=== PATIENT | female | born 1970 | race Caucasian/White ===

== ENCOUNTER 2022-09-30 08:00 | Outpatient (NON) | payer OTHER, SELFPAY | END 2022-09-30 08:01 | disposition home or self-care (01) | LOC: ANHLAB 10-01 07:23 | PROVIDERS: PCP Family Medicine; Visit Provider Obstetrics & Gynecology | DX: N84.0 Polyp of corpus uteri (principal); N95.0 Postmenopausal bleeding | CPT/HCPCS: 88305 ==

== ENCOUNTER 2022-09-30 09:06 | Day surgery (SDC) | payer OTHER, SELFPAY ==
[2022-09-21 15:00] VITALS: BMI 37.6
[2022-09-22 09:11] VITALS: BMI 37.0
[2022-09-30] VITALS (7 sets, daily range): BP systolic 76–133; BP diastolic 34–93; PULSE 30–77; RESP 12–20; TEMP 36.8; O2SAT 99–100
--- NOTE | 2022-09-30 00:08 | PM.IMHP ---
H&P: HPI History of Present Illness Date/Time: 09/30/22 00:08 Chief Complaint: Postmenopausal bleeding. Narrative: 51 y/o who had not had any vaginal bleeding for a couple of years. She then had an episode of vaginal bleeding in early August 2022, lasting for 4 days, followed by another episode of brick wheeler spotting. She had a hysteroscopy with D&C in 2012 which found a benign endometrial polyp. Ultrasound shows an anteverted uterus with a small posterior myoma. The endometrial complex is heterogeneous, measuring 12 mm in thickness. Adnexa are not clearly seen. I have offered hysteroscopy wiht D&C and possible endometrial polypectomy. Review of Systems Review of Systems: All systems reviewed & are unremarkable except as noted in HPI and below PMFSH Past Medical History Medical History BMI greater than 30 Elevated glucose Family history of diabetes mellitus (DM) Screening for lipid disorders Family History Family History Other Diabetes mellitus Hypertension Social History Social History Smoking status: Never smoker Alcohol intake: current Meds Home Medications and Allergies Home Medications Medication Instructions Recorded Confirmed Type No Home Medications 07/15/21 09/22/22 History Allergies Allergy/AdvReac Type Severity Reaction Status Date / Time No Known Allergies Allergy Verified 09/22/22 09:08 Exam Const: Orientation/consciousness: patient oriented x3 Other: Well-developed, well-nourished female in no acute distress. Neck: Thyroid: thyroid normal Lymphatic: no lymphadenopathy noted (in neck, axilla or inguinal nodes) Resp: Effort & Inspection: normal respiratory effort Auscultation: clear to auscultation bilaterally Cardio: Rate: regular rate Rhythm: regular rhythm Heart sounds: S1 normal heart sound present and S2 normal heart sound present GI: Other: ABD: Soft, nontender, nondistended. No guarding or rebound tenderness. No hepatosplenomegaly. : General: Yes no CVA tenderness Other: External genitalia: normal female hair distribution, without lesion. Urethral meatus: no lesion, non prolapsed. Bladder: no mass, nontender Vagina: well-estrogenized, without lesion or discharge. No cystocele or rectocele. Cervix: no lesion or discharge. Uterus: small, anteverted, freely mobile, nontender Adnexa: no mass or tenderness. Anus/perineum: no lesions, nontender Back/Spine/Pelvis: Back: no CVA tenderness Skin: General skin exam: normal color and no rashes or lesions noted Neuro: General: patient oriented x3 Extrem: Other: Extremities: nontender with no edema Psych: Mental Status: mental status grossly normal Affect: normal affect Assessment and Plan Assessment and plan (1) Postmenopausal bleeding: Code(s): N95.0 - Postmenopausal bleeding Status: Acute Assessment and Plan: I offered hysteroscopy with dilation and sharp curettage, with possible endometrial polypectomy. She understands risks of surgery to include risks of anesthesia, risks of pain, infection, bleeding, blood products, thromboembolic phenomena and damage to adjacent structures such as bowel, bladder, ureters, blood vessels and nerves. She understands all these risks and elects to proceed with surgery. (2) Abnormal pelvic ultrasound: Code(s): R93.89 - Abnormal findings on diagnostic imaging of other specified body structures Status: Acute
[2022-09-30] MEDS: LACTATED RINGERS 1,000 ML 30 ML IV CONT ×2 (09:45→12:35)
[2022-09-30] MEDS: ACETAMINOPHEN 500 MG TABLET 1000 MG PO (09:45)
--- NOTE | 2022-09-30 11:04 | WPDHPUPDATE1 ---
History and Physical Update Update Date/Time: 09/30/22 11:04 History and Physical has been reviewed, including an updated exam of the patient. There are NO changes in the patient's condition. Risks, benefits, and alternatives have been discussed and questions answered. Patient agrees to proceed with procedure.
--- NOTE | 2022-09-30 11:13 | P.PNAN_ITS ---
Anes - Initial Pre Proc Eval Procedure: Operation Date: 09/30/22 11:00 Proposed Procedures p Hysteroscopy, Dilation and Curettage with Polypectomy - Benjamin Cevallos MD Date/Time: 09/30/22 11:13 Surgeon: Benjamin Cevallos MD Pre Op Diagnosis: Cervial Polyp, Post menopausal bleeding Patient Data Age: 51 Gender: F Height: 1.6 m Weight: 98.4 kg Last Vital Signs Temp 36.8 C 09/30/22 09:45 Pulse 77 09/30/22 09:45 Resp 16 09/30/22 09:45 BP 133/80 09/30/22 09:45 Pulse Ox 99 09/30/22 09:45 O2 Del Method Room Air 09/30/22 09:45 Allergies Allergy/AdvReac Type Severity Reaction Status Date / Time No Known Allergies Allergy Verified 09/30/22 09:55 Home Medications Medication Instructions Recorded Confirmed Type hydrocodone 5 mg-acetaminophen 325 1 - 2 tablet PO Q6H PRN pain #20 09/30/22 Rx mg tablet tabs Patient hx anesthesia problems: none Family hx anesthesia problems: none Results Review: All pre-operative results and documents have been reviewed as part of the pre- operative evaluation. [facility]LY [facility] Past Medical History Medical History BMI greater than 30 Elevated glucose Family history of diabetes mellitus (DM) Screening for lipid disorders Family History Family History Other Diabetes mellitus Hypertension Social History Social History Smoking status: Never smoker Alcohol intake: current Anes - Eval Final PreProcedure Day of Procedure 09/30/22 11:13 Patient weight: obese Heart: regular rate and rhythm Lungs: clear to auscultation Airway: Mallampati scale class II Neurological: alert and oriented Last oral intake: >/= 8 hours ASA classification: II Emergent: no Anesthetic plan: proceed Anesthesia type and monitoring: general GIVS and standard monitoring Results Review: All pre-operative results and documents have been reviewed as part of the pre- operative evaluation. Informed Consent: The patient's anesthetic plan and its attendant risks and benefits were discussed with the patient/family/POA. Questions were solicited and answers provided to the satisfaction of the patient/family/POA.
--- NOTE | 2022-09-30 11:43 | W.PM.PROC2 ---
Procedure Note - Detailed Date of Procedure 09/30/22 Pre-op Diagnosis Post menopausal bleeding Abnormal pelvic ultrasound Post-op Diagnosis Same Procedure Performed Hysteroscopy Dilation and sharp curettage Endometrial polypectomy Surgeon Benjamin Cevallos MD Anesthesia MAC and Local (1% lidocaine paracervical block) Findings Thickened endometrial tissue and likely polyp Description of Procedure The patient was taken to the operating room where she was prepared and draped in the usual sterile fashion in the dorsal lithotomy position. The bladder was drained with a red rubber catheter. A sterile speculum was placed into the vagina. The anterior lip of the cervix was grasped with single-tooth tenaculum. Ten mL of 1% lidocaine was administered in a paracervical block. The cervix was then gently dilated using Hegar dilators until an 8 mm dilator could be passed. Hysteroscopy was performed using sterile saline as a distention medium. Findings are as noted above. Sharp curettage was then performed, and endometrial curettings were collected on a Telfa pad and passed off to be sent to pathology. Hemostasis was excellent. Sponge, lap, needle and instrument counts were correct. The patient was awakened and taken to the recovery room in stable condition. I was present and scrubbed through the entire procedure. Implants None Estimated Blood Loss 5 Drains No Pathology Yes (Endometrial curettings) Complications None Disposition PACU
[2022-09-30] MEDS: LIDOCAINE HCL 1% LOCAL INJ 20 ML VIAL 10 ML INFILTRATE (11:48)
--- NOTE | 2022-09-30 11:59 | WPDANESPN ---
Anes - Prog Note Post-Op Date/Time: 09/30/22 11:59 Cardiovascular status: normal Respiratory status: normal Airway patency: baseline Mental status: baseline Post-Op hydration status: normal Vital Signs: Last Vital Signs Temp 36.8 C 09/30/22 11:45 Pulse 73 09/30/22 11:45 Resp 16 09/30/22 11:45 BP 121/64 09/30/22 11:45 Pulse Ox 99 09/30/22 11:45 O2 Del Method Room Air 09/30/22 11:45 Pain Score (VAS): 0 I/O: Intake & Output 09/29/22 09/30/22 09/30/22 23:59 07:59 15:59 Output Total 200 Balance -200 Patient Feedback: Patient satisfied with anesthetic care.
[2022-09-30] MEDS: ATROPINE SULFATE 1 MG/10 ML SYRINGE 0.4 MG IV PUSH (12:15)
--- NOTE | 2022-09-30 12:45 | SUR.PHASEII ---
1210 approached pt to obtain vs. pt w/noted drop in heart rate as noted. able to verbally respond at all times. c/o nausea. family at bedside. 1211 taylor carnes notified of pt response. new orders rec'd. 1215 atropine given per orders/vs as noted/ pt remains awake and responsive. family excused to waiting room. 1220 12 lead ekg obtained and reviewed by taylor carnes / no new orders. 1225 pt acknowledges shes feeling much better and that her nausea has subsided. c/o lower abdominal discomfort/comfort measures provided/denies need for pain med at this time. spouse reunited w/pt. 1235 Dr Cevallos notified via phone of patient status/acknowledges understanding/no new orders. 1240 pt denies distress. vss. sats wnl/roomair. 1255 awake/alert/vss. no distress noted. pt states shes feeling ready to go home.
== END 2022-09-30 13:25 | disposition home or self-care (01) ==
PROVIDERS: PCP Family Medicine; Visit Provider Obstetrics & Gynecology
PROC: 0U5B8ZZ Destruction of Endometrium, Via Natural or Artificial Opening Endoscopic (ICD-10-PCS; CPT 58563; principal; 2022-09-30 11:00)
DX: R93.89 Abnormal findings on diagnostic imaging of other specified body structures (principal)
CPT/HCPCS: 58558

== ENCOUNTER 2025-03-05 00:07 | Day surgery (SDC) | payer OTHER, SELFPAY ==
[2025-03-01 08:41] VITALS: BMI 43.0
--- NOTE | 2025-03-05 07:59 | WPDANESEPPF ---
Anes - Initial Pre Proc Eval Procedure: Operation Date: 03/05/25 10:00 Proposed Procedures p Screening Colonoscopy - Jeet Casey DO Date/Time: 03/05/25 07:59 Surgeon: Jeet Casey DO Pre Op Diagnosis: Neoplasm screening Patient Data Age: 54 Gender: F Height: 1.6 m Weight: 110.2 kg Allergies Allergy/AdvReac Type Severity Reaction Status Date / Time No Known Allergies Allergy Verified 03/05/25 09:12 Home Medications ?Medication ?Instructions ?Recorded ?Confirmed ?Type No Home Medications 02/28/24 03/01/25 History Patient hx anesthesia problems: none Family hx anesthesia problems: none Results Review: All pre-operative results and documents have been reviewed as part of the pre-operative evaluation. [facility] Past Medical History Medical History Screening mammogram, encounter for Syncope Elevated glucose Family history of diabetes mellitus (DM) Screening for lipid disorders Family History Family History Other Diabetes mellitus Hypertension Social History Social History Smoking status: Never smoker Second hand tobacco smoke exposure: No Alcohol intake: current Alcohol use details: socially on the weekends Substance use: never Substance use type: does not use Do You Feel Safe in your Home?: Yes Lack of Transportation: No Lack of Food: Never True Current Housing: I Have Housing Concerned About Future Housing: No Difficulty Paying Gas/Electric Bills: No Difficulty Paying for Meds: No Currently Unemployed: No Education: Bachelor's Degree Difficulty w/ Childcare or Family Care: No Living arrangements: with family Gender identity (if verbalized by the patient): Female Spiritual care concerns: No Anes - Eval Final PreProcedure Day of Procedure 03/05/25 07:59 Patient weight: morbidly obese Heart: regular rate and rhythm Lungs: clear to auscultation Airway: Mallampati scale class III Neurological: alert and oriented Last oral intake: >/= 8 hours ASA classification: III Emergent: no Anesthetic plan: proceed Anesthesia type and monitoring: general GIVS and standard monitoring Results Review: All pre-operative results and documents have been reviewed as part of the pre-operative evaluation. Informed Consent: The patient's anesthetic plan and its attendant risks and benefits were discussed with the patient/family/POA. Questions were solicited and answers provided to the satisfaction of the patient/family/POA.
[2025-03-05 09:13] VITALS: BP 136/74; PULSE 72; RESP 18; TEMP 36.6; O2SAT 98
[2025-03-05] MEDS: LACTATED RINGERS 1,000 ML 150 ML IV CONT (09:31)
--- NOTE | 2025-03-05 10:17 | PM.IMHP ---
H&P: HPI History of Present Illness Date/Time: 03/05/25 10:17 Chief Complaint: screening for colorectal cancer Narrative: this is a 54-year-old woman who presents for colonoscopy. Her last colonoscopy was about 13 years ago. She denies any hematochezia or melena. She denies any family history of colon cancer. Review of Systems Review of Systems: All systems reviewed & are unremarkable except as noted in HPI and below Constitutional: Constitutional: Denies chills, Denies fever(s), Denies headache(s) and Denies weight loss Eyes: Eyes: Denies change in vision ENT: Denies dizziness, Denies headache(s), Denies neck mass and Denies throat swelling Cardiovascular: Cardiovascular: Denies chest pain, Denies lightheadedness and Denies dyspnea Respiratory: Respiratory: Denies cough, Denies dyspnea and Denies wheezing Gastrointestinal: Gastrointestinal: Denies abdominal pain, Denies change in bowel habits, Denies nausea and Denies vomiting Genitourinary: Genitourinary: Denies hematuria and Denies dysuria Musculoskeletal: Musculoskeletal: Reports as per HPI Integumentary/Breasts: Skin/Breast: Reports as per HPI Neurologic: Denies dizziness and Denies headache(s) Allergic/Immunologic: Allergic/Immunologic: Denies throat swelling and Denies wheezing PMFSH Past Medical History Medical History Screening mammogram, encounter for Syncope Elevated glucose Family history of diabetes mellitus (DM) Screening for lipid disorders Family History Family History Other Diabetes mellitus Hypertension Social History Social History Smoking status: Never smoker Second hand tobacco smoke exposure: No Alcohol intake: current Alcohol use details: socially on the weekends Substance use: never Substance use type: does not use Do You Feel Safe in your Home?: Yes Lack of Transportation: No Lack of Food: Never True Current Housing: I Have Housing Concerned About Future Housing: No Difficulty Paying Gas/Electric Bills: No Difficulty Paying for Meds: No Currently Unemployed: No Education: Bachelor's Degree Difficulty w/ Childcare or Family Care: No Living arrangements: with family Gender identity (if verbalized by the patient): Female Spiritual care concerns: No Meds Home Medications and Allergies Home Medications ?Medication ?Instructions ?Recorded ?Confirmed ?Type No Home Medications 02/28/24 03/01/25 History Allergies Allergy/AdvReac Type Severity Reaction Status Date / Time No Known Allergies Allergy Verified 03/05/25 09:12 Vital Signs Vital Signs - 24 hr 03/05/25 09:13 Temperature 97.8 F Pulse Rate 72 Respiratory Rate 18 Blood Pressure 136/74 Pulse Oximetry 98 Oxygen Delivery Room Air Exam Const: General: no acute distress and alert Orientation/consciousness: patient oriented x3 HENMT: Head: normocephalic and atraumatic Ears: hearing grossly normal bilaterally Face/Nose/Sinus: Normal nares present Mouth: Yes Normal oral and palatal mucosa present Eyes: Periorbital: periorbital findings normal Sclera: sclerae normal EOM: EOMs intact bilaterally Neck: Neck: normal visual inspection, no lymphadenopathy and trachea midline Chest: Chest palpation & inspection: normal inspection of the chest Resp: Effort & Inspection: normal respiratory effort Auscultation: clear to auscultation bilaterally Cardio: Jugular venous distension: no JVD Rate: regular rate Rhythm: regular rhythm Heart sounds: S1 normal heart sound present and S2 normal heart sound present Peripheral pulses: Peripheral pulses 2+ throughout GI: Inspection: normal to inspection GI Palp: Yes Soft to palpation, No Tenderness to palpation present (GI), No Guarding due to palpation present (GI) and No Rebound tenderness present Percussion: Yes normal to percussion Auscultation: normal bowel sounds : General: Yes no CVA tenderness Back/Spine/Pelvis: Back: no CVA tenderness Neuro: General: patient oriented x3, no focal motor deficits and CN's II-XI intact bilaterally Cognition (Neuro): normal cognition Speech: normal speech Motor exam (neuro): 5/5 motor strength present throughout Extrem: General: capillary refill normal and no clubbing, cyanosis or edema Assessment and Plan Assessment and plan (1) Screen for colon cancer: Code(s): Z12.11 - Encounter for screening for malignant neoplasm of colon Status: Acute Assessment and Plan: I have recommended colonoscopy. I have discussed the procedure, risks, benefits, and alternatives. Questions were answered. Patient is agreeable to proceed.
[2025-03-05 10:44] VITALS: BP 121/64; PULSE 71; RESP 21; O2SAT 100
[2025-03-05 10:54] VITALS: BP 115/64; PULSE 61; RESP 13; O2SAT 100
== END 2025-03-05 11:16 | disposition home or self-care (01) ==
PROVIDERS: PCP Family Medicine; Visit Provider Surgery
PROC: 0DJD8ZZ Inspection of Lower Intestinal Tract, Via Natural or Artificial Opening Endoscopic (ICD-10-PCS; CPT 45378; principal; 2025-03-05 10:00)
DX: Z12.11 Encounter for screening for malignant neoplasm of colon (principal); E66.01 Morbid (severe) obesity due to excess calories; Z68.41 Body mass index [BMI] 40.0-44.9, adult
CPT/HCPCS: 45378; J2003; J2704; J7120